=== PATIENT | female | born 1995 | race American Indian/Alaskan Native ===

== ENCOUNTER 2022-01-17 12:03 | Emergency (ER) | payer SELFPAY ==
[2022-01-17 12:16] VITALS: BP 152/91
[2022-01-17] MEDS ORDERED: KETOROLAC 60 MG/2 ML INJ IM ONE (13:32)
[2022-01-17] MEDS ORDERED: dexAMETHasone 20 MG/5 ML VIAL IM ONE (13:32)
--- NOTE | 2022-01-17 15:04 | Emergency Department Report ---
ED General Adult HPI - General Chief complaint: Pain General Stated complaint: CHILLS, DIZZINESS, JOINT PAIN Source: patient Mode of arrival: Ambulatory Limitations: No Limitations - History of Present Illness Initial comments: Patient is a 26-year-old -[place] female with a history of obesity who presents to the ED with complaint of acute onset persistent diffuse body aches and pains, worsening joint pains for the last 3 weeks. Patient states that in the last 2 days she has also been experiencing persistent chills. Patient denies fall, traumatic injury, dizziness, syncope, fever, chills, cough, sore throat, nasal and sinus congestion or abdominal pain. MD Complaint: body aches and pains -: week(s) (3) Location: back, upper extremity, lower extremity Radiation: non-radiation Severity scale (0 -10): 10 Quality: aching, sharp Consistency: constant Improves with: none Worsens with: movement Associated Symptoms: denies other symptoms, loss of appetite, malaise. denies: confusion, chest pain, cough, diaphoresis, fever/chills, headaches, nausea/vomiting, rash, seizure, shortness of breath, syncope, weakness Treatments Prior to Arrival: none - Related Data Allergies Allergy/AdvReac Type Severity Reaction Status Date / Time No Known Allergies Allergy Unverified 01/17/22 12:13 ED Review of Systems ROS: Stated complaint: CHILLS, DIZZINESS, JOINT PAIN Other details as noted in HPI Constitutional: chills, malaise. denies: fever Eyes: denies: eye pain, eye discharge, vision change ENT: denies: ear pain, throat pain Respiratory: denies: cough, shortness of breath, wheezing Cardiovascular: denies: chest pain, palpitations Endocrine: no symptoms reported Gastrointestinal: denies: abdominal pain, nausea, vomiting, diarrhea Genitourinary: denies: urgency, dysuria, discharge Musculoskeletal: back pain, arthralgia, myalgia. denies: joint swelling Skin: denies: rash, lesions Neurological: denies: headache, weakness, paresthesias Psychiatric: denies: anxiety, depression Hematological/Lymphatic: denies: easy bleeding, easy bruising ED Past Medical Hx - Past Medical History Previous Medical History?: Yes Hx Asthma: Yes Additional medical history: Hx of SVT, Had an Ablation for SVT, Vaginal delivery x 1 - Surgical History Past Surgical History?: No ED Physical Exam - General Limitations: No Limitations General appearance: alert, in no apparent distress - Head Head exam: Present: atraumatic, normocephalic, normal inspection - Eye Eye exam: Present: normal appearance, PERRL, EOMI Pupils: Present: normal accommodation - ENT ENT exam: Present: normal exam, normal orophraynx, mucous membranes moist, TM's normal bilaterally, normal external ear exam - Neck Neck exam: Present: normal inspection, full ROM - Respiratory Respiratory exam: Present: normal lung sounds bilaterally. Absent: respiratory distress, wheezes, rales, rhonchi, chest wall tenderness, accessory muscle use, decreased breath sounds, prolonged expiratory - Cardiovascular Cardiovascular Exam: Present: regular rate, normal rhythm, normal heart sounds. Absent: systolic murmur, diastolic murmur, rubs, gallop - GI/Abdominal GI/Abdominal exam: Present: soft, normal bowel sounds. Absent: tenderness, guarding, rebound, hyperactive bowel sounds, hypoactive bowel sounds, organomegaly, mass, pulsatile mass - Extremities Exam Extremities exam: Present: normal inspection, full ROM, normal capillary refill. Absent: tenderness, pedal edema, joint swelling - Back Exam Back exam: Present: normal inspection, full ROM. Absent: tenderness, muscle spasm, paraspinal tenderness, vertebral tenderness - Neurological Exam Neurological exam: Present: alert, oriented X3, CN II-XII intact, normal gait, reflexes normal - Psychiatric Psychiatric exam: Present: normal affect, normal mood - Skin Skin exam: Present: warm, dry, intact, normal color. Absent: rash ED Course Vital Signs 01/17/22 12:13 Temperature 97.3 F L Pulse Rate 98 H Respiratory 20 Rate Blood Pressure 152/91 [Right] O2 Sat by Pulse 97 Oximetry ED Medical Decision Making - Medical Decision Making This is a 26-year-old -[place] female with a history of obesity who presents to the ED with complaint of acute onset persistent diffuse body aches and pains, worsening joint pains for the last 3 weeks. Patient states that in the last 2 days she has also been experiencing persistent chills. In the ED, patient is alert and oriented x3 and is not in distress. Patient is hemodynamically stable. Patient was treated for pain in the ED. Lab tests were initiated but the patient eloped from the ED before this could be completed. - Differential Diagnosis Chronic osteoarthritis; muscle strain; muscle spasm; Critical care attestation.: If time is entered above; I have spent that time in minutes in the direct care of this critically ill patient, excluding procedure time. ED Disposition Clinical Impression: Chronic osteoarthritis Muscle strain of lower extremity Qualifiers: Encounter type: initial encounter Laterality: unspecified laterality Qualified Code(s): S86.919A - Strain of unspecified muscle(s) and tendon(s) at lower leg level, unspecified leg, initial encounter Disposition: 07 LEFT AWOL/ELOPED Is pt being admited?: No Does the pt Need Aspirin: No Condition: Undetermined Referrals: PRIMARY CARE, [Primary Care Provider] - 3-5 Days Time of Disposition: 15:05 Print Language: MAORI
[2022-01-17 15:28] LABS: Bacteria,Urine 1+ /HPF (Negative); Mucus,Urine 3+ /HPF
[2022-01-17 15:56] LABS: Color,Urine Yellow (Yellow)
[2022-01-17 15:57] LABS: Bilirubin,Urine Negative (Negative); Blood,Urine Large (Negative); Urobilinogen,Urine < 2.0 mg/dL (<2.0)
== END 2022-01-17 15:22 | disposition left against medical advice (07) ==
LOC: ED 12:03
DX: S86.912A Strain of unspecified muscle(s) and tendon(s) at lower leg level, left leg, initial encounter (principal); S86.911A Strain of unspecified muscle(s) and tendon(s) at lower leg level, right leg, initial encounter; M19.90 Unspecified osteoarthritis, unspecified site; J45.909 Unspecified asthma, uncomplicated; X58.XXXA Exposure to other specified factors, initial encounter; Y93.89 Activity, other specified; Y92.89 Other specified places as the place of occurrence of the external cause; Y99.8 Other external cause status
CPT/HCPCS: 81001; 87086; 96372; 99282; J1100; J1885